=== PATIENT | male | born 1985 | race Caucasian/White ===

== ENCOUNTER 2017-12-02 05:04 | Emergency (ER) | payer MEDICAID ==
[2017-12-02] MEDS ORDERED: IBUPROFEN 600 MG TAB PO ONE (05:24)
--- NOTE | 2017-12-02 06:09 | EDPHY ---
H & P Stated Complaint: left foot injury Time Seen by Provider: 12/02/17 06:07 HPI/ROS: HPI The patient presents with left foot pain which has been present for the last several hours after he fell while walking on a [place] surface injuring his foot. He is not exactly sure how he fell. Ever since the fall he has had pain and the dorsal surface of his foot. He is able to walk though walking makes his pain worse. It is an achy moderate pain.. REVIEW OF SYSTEMS Constitutional: No fever, no chills. Musculoskeletal: No back pain. Skin: No rashes. Neurological: No headache. PMHx: No diabetes, no hypertension Soc Hx: Here with his partner, cigarette smoker PHYSICAL General Appearance: Alert, no distress Eyes: Pupils equal and round no pallor or injection ENT, Mouth: Mucous membranes moist Respiratory: Breathing comfortably Neurological: A&O, moves all extremities Skin: Warm and dry, no rashes Extremities: Left foot is tender over the anterior surface diffusely without any erythema or point tenderness, full range of motion of toes, 2+ DP pulses Psychiatric: Patient is oriented X 3, there is no agitation Source: Patient Exam Limitations: No limitations - Personal History Current Tetanus Diphtheria and Acellular Pertussis (TDAP): Yes - Medical/Surgical History Hx Asthma: No Hx Chronic Respiratory Disease: No Hx Diabetes: No Hx Cardiac Disease: No Hx Renal Disease: No Hx Cirrhosis: No Hx Alcoholism: No Hx HIV/AIDS: No Hx Splenectomy or Spleen Trauma: No - Social History Smoking Status: Heavy smoker Constitutional: Initial Vital Signs Temperature (C) 36.7 C 12/02/17 05:07 Heart Rate 88 12/02/17 05:07 Respiratory Rate 20 12/02/17 05:07 Blood Pressure 100/67 12/02/17 05:07 O2 Sat (%) 95 12/02/17 05:07 O2 Delivery Mode Room Air Allergies/Adverse Reactions: No Known Allergies Allergy (Unverified 12/02/17 05:06) Home Medications: Medication Instructions Recorded NK [No Known Home Meds] 12/02/17 Medical Decision Making - Diagnostics Imaging Results: X-ray left foot three view shows no fracture, no dislocation, interpreted by me , radiology interpretation is pending. Imaging: I viewed and interpreted images myself Differential Diagnosis: 32-year-old man with injury to left foot yesterday with ongoing foot pain. X- ray shows no acute injury. I suspect foot sprain. I have placed him in a postop shoe and given him crutches. I have given him information for follow up with Podiatry if his symptoms continue. Differential diagnosis includes metatarsal fracture, toe fracture, foot sprain. - Data Points Medications Given: Discontinued Medications Ibuprofen (Motrin) 600 mg PO EDNOW ONE Stop: 12/02/17 05:25 Last Admin: 12/02/17 05:36 Dose: 600 mg Departure - Departure Disposition: Home, Routine, Self-Care Clinical Impression: Sprain of left foot Condition: Good Instructions: Foot Sprain (ED) Additional Instructions: The x-rays obtained in the emergency department today demonstrate no evidence of an obvious fracture. Sometimes fractures are not obvious on the initial set of x-rays performed in the ED. For this reason, you should have repeat x-rays performed in 7-10 days if you are having any pain exclude the possibility of an occult fracture. Referrals: Barbara Goodson DPM [Doctor of Podiatric Medicine] - As per Instructions
[2017-12-02 06:29] VITALS: BP 109/73
== END 2017-12-02 06:27 | disposition home or self-care (01) ==
DX: S93.602A Unspecified sprain of left foot, initial encounter (principal); F17.210 Nicotine dependence, cigarettes, uncomplicated; W18.39XA Other fall on same level, initial encounter; Y92.89 Other specified places as the place of occurrence of the external cause; Y99.8 Other external cause status; Y93.01 Activity, walking, marching and hiking
CPT/HCPCS: L4386